=== PATIENT | male | born 1960 | race Caucasian/White ===

== ENCOUNTER 2018-05-18 13:33 | Emergency (ER) | END 2018-05-18 17:23 | disposition home or self-care (01) ==

== ENCOUNTER 2018-05-27 13:56 | Emergency (ER) | END 2018-05-27 17:24 | disposition home or self-care (01) ==

== ENCOUNTER 2018-06-19 12:45 | Emergency (ER) | END 2018-06-19 19:15 | disposition home or self-care (01) ==